=== PATIENT | female | born 1935 | race Caucasian/White ===

== ENCOUNTER 2018-05-02 17:21 | Emergency (ER) | payer MEDICARE, BC ==
[~2018-05-02] VITALS: Ht 167.6 cm; Wt 53.0 kg
[~2018-05-02 17:21] MED LIST: ANTIVERT PO; ANTIVERT12.5 MG PO; BABY ASPIRIN81 MG PO; BAYER ASPIRIN E81 MG PO; CALCIUM CITRATE1 TAB PO; CEPHALEXIN500 MG PO; CIPROFLOXACN500 MG PO; COLACE100 MG PO; COUMADIN2.5 MG PO; COUMADIN7.5 MG PO; CRANBERRY PO; DONEPEZIL5 MG PO; KEFLEX500 MG PO; LIPITOR10 MG PO; LIPITOR40 MG PO; LORATADINE10 M1 PO; LOSARTAN POTASS50 MG PO; MAG-OX 400400 MG PO; METOPROLOL SUCC25 MG PO; MICARDIS40 MG PO; NAMENDA XR28 MG PO; NEXIUM20 MG PO; NORCO1 TA1 PO; PRILOSEC40 MG PO; RAPAFLO8 MG PO; ROBITUSSIN AC10 ML PO; TRAMADOL HCL50 MG PO; XANAX0.25 MG PO; ZOLPIDEM TARTRAT5 MG PO
[2018-05-02 18:10] LABS: URINE BILIRUBIN - DIPSTICK NEGATIVE (NEGATIVE); URINE BLOOD DIPSTICK LARGE (NEGATIVE); URINE COLOR YELLOW; URINE GLUCOSE - DIPSTICK NEGATIVE (NEGATIVE); URINE KETONE NEGATIVE (NEGATIVE); URINE NITRITE - DIPSTICK NEGATIVE (Negative); URINE PROTEIN - DIPSTICK NEGATIVE (NEG-TRACE); URINE UROBILINOGEN - DIPSTICK 0.2 E.U./dL (0.2)
[2018-05-02 18:14] LABS: URINE CLARITY TURBID; URINE LEUK ESTERASE MODERATE (NEGATIVE)
[2018-05-02 18:23] LABS: URINE BACTERIA FEW hpf; URINE SQUAMOUS EPITHELIAL CELL FEW EPI/hpf (0-FEW)
[2018-05-02 18:48] LABS: HEMATOCRIT 34.2 % (37.0-47.0); HEMOGLOBIN 10.4 g/dl (12.0-16.0); MEAN CELL VOLUME 84.7 fL CALC (80.0-100.0); MEAN CORPUSCULAR HGB 25.7 pG CALC (26.0-32.0); MEAN CORPUSCULAR HGB CONC 30.4 g/L CALC (32.0-36.0); NEUT# 12.6 thou/uL (2.00-7.15); RED BLOOD COUNT 4.04 mill/uL (4.20-5.60); RED CELL DISTRI WIDTH 15.9 % (11.5-15.5)
[2018-05-02 19:02] LABS: ALBUMIN 3.2 g/dL (3.2-5.0); ALKALINE PHOSPHATASE 155 u/l (38-126); ANION GAP 16 (6-22 (CALC)); BILIRUBIN, TOTAL 0.5 mg/dL (0.0-1.4); BUN 18 mg/dL (8-23); BUN/CREATININE RATIO 20 (12-20 (CALC)); CARBON DIOXIDE 23 mmol/l (22-30); CHLORIDE 101 mmol/l (95-108); CREATININE 0.9 mg/dL (0.5-1.0); GFR 60 ML/MIN (>=60 (CALC)); GFR FOR AFR.AMER. > 60 ML/MIN (>=60 (CALC)); POTASSIUM 4.7 mmol/l (3.5-5.1); SGOT/AST 16 u/l (9-36); SODIUM 136 mmol/l (137-146); TOTAL PROTEIN 6.9 g/dL (6.3-8.2)
[2018-05-02 22:19] VITALS: BP 134/67
== END 2018-05-03 00:51 ==
LOC: ED 17:21
PROVIDERS: Emergency Medicine
DX: I71.3 Abdominal aortic aneurysm, ruptured (principal); N39.0 Urinary tract infection, site not specified; D72.829 Elevated white blood cell count, unspecified; I10 Essential (primary) hypertension; F17.210 Nicotine dependence, cigarettes, uncomplicated; Z87.440 Personal history of urinary (tract) infections